=== PATIENT | female | born 1955 | race Caucasian/White ===

== ENCOUNTER 2017-12-26 11:30 | Outpatient (CLI) | payer BC | END 2017-12-26 11:31 | disposition home or self-care (01) | LOC: BICMAMMO 11:30 | PROVIDERS: ATTEND Obstetrics & Gynecology | DX: Z12.31 Encounter for screening mammogram for malignant neoplasm of breast (principal); N64.89 Other specified disorders of breast | CPT/HCPCS: 77063; 77067 ==

== ENCOUNTER 2017-12-29 12:54 | Outpatient (CLI) | payer BC | END 2017-12-29 12:55 | disposition home or self-care (01) | LOC: BICMAMMO 12:54 | PROVIDERS: ATTEND Obstetrics & Gynecology | DX: R92.2 Inconclusive mammogram (principal); N64.89 Other specified disorders of breast | CPT/HCPCS: G0279 ==

== ENCOUNTER 2019-01-01 09:38 | Outpatient (CLI) | payer BC ==
--- NOTE | 2019-01-01 10:59 | MMO ---
Bilateral MAMMO Bilat Screen [facility]. CLINICAL HISTORY: Patient is 63 years old and is seen for screening. The patient has no family history of breast cancer. The patient has no personal history of cancer. VIEWS: The views performed were: bilateral craniocaudal with tomosynthesis and bilateral mediolateral oblique with tomosynthesis. FILMS COMPARED: The present examination has been compared to prior imaging studies performed at [facility] on 12/23/2015, 12/23/2016, 12/26/2017 and 12/29/2017. MAMMOGRAM FINDINGS: The breasts are heterogeneously dense, which could obscure a lesion on mammography. There are no suspicious masses, suspicious calcifications, or new areas of architectural distortion. IMPRESSION: THERE IS NO MAMMOGRAPHIC EVIDENCE OF MALIGNANCY. A ROUTINE FOLLOW-UP MAMMOGRAM IN 1 YEAR IS RECOMMENDED. THE RESULTS OF THIS EXAM WERE SENT TO THE PATIENT. ACR BI-RADS Category 1 - Negative MAMMOGRAPHY NOTE: 1. A negative mammogram report should not delay a biopsy if a dominant of clinically suspicious mass is present. 2. Approximately 10% to 15% of breast cancers are not detected by mammography. 3. Adenosis and dense breasts may obscure an underlying neoplasm. Reported by: CHELSEA SAUCEDO MD Electonically Signed: [id number]
== END 2019-01-01 09:39 | disposition home or self-care (01) ==
LOC: BICMAMMO 09:38
PROVIDERS: ATTEND Internal Medicine
DX: Z12.31 Encounter for screening mammogram for malignant neoplasm of breast (principal)
CPT/HCPCS: 77063; 77067

== ENCOUNTER 2019-01-11 08:45 | Outpatient (CLI) | payer BC ==
--- NOTE | 2019-01-11 10:55 | BD ---
DEXA SCAN: INDICATION: Osteoporosis screening. COMPARISON: Prior examination dated 12/23/2016 from [facility]. FINDINGS: Lumbar Spine: BMD (g/cm2) L1 0.746 T-Score: -2.2 Z-Score: -0.8 L2 0.771 T-Score: -2.3 Z-Score: -0.8 L3 0.832 T-Score: -2.3 Z-Score: -0.7 L4 0.827 T-Score: -2.1 Z-Score: -0.5 L1-L4 0.797 T-Score: -2.3 Z-Score: 0.7 Femoral Neck: 0.681 T-Score: -1.5 Z-Score: -0.1 Total Femur: 0.881 T-Score: -0.5 Z-Score: 0.6 The FRAX WHO fracture risk assessment tool estimates fracture risk for a major osteoporotic fracture for this patient is 14% and for a hip fracture as 1.4%. The bone mineral density of the left femoral neck region and left total hip region has not appreciabl y changed from the comparison study. The bone mineral density of the lumbar spine has slightly decli milton from the previous evaluation in 2017. Impression: Based on WHO criteria, the patient's bone mineral density is osteopenic. The patient's bone mineral density has mildly declined from the comparison examination in 2017. POS: OFF
== END 2019-01-11 08:46 | disposition home or self-care (01) ==
LOC: BICMAMMO 08:45
PROVIDERS: ATTEND Obstetrics & Gynecology
DX: Z13.820 Encounter for screening for osteoporosis (principal); M85.89 Other specified disorders of bone density and structure, multiple sites
CPT/HCPCS: 77080

== ENCOUNTER 2020-05-07 13:36 | Outpatient (CLI) | payer BC, OTHER ==
--- NOTE | 2020-05-07 18:48 | MMO ---
Bilateral MAMMO Bilat Screen [facility]. CLINICAL HISTORY: Patient is 64 years old and is seen for screening. The patient has no family history of breast cancer. The patient has no personal history of cancer. VIEWS: The views performed were: bilateral craniocaudal with tomosynthesis and bilateral mediolateral oblique with tomosynthesis. FILMS COMPARED: The present examination has been compared to prior imaging studies performed at [facility] on 12/23/2016, 12/26/2017, 12/29/2017 and 01/01/2019. This study has been interpreted with the assistance of computer-aided detection. MAMMOGRAM FINDINGS: The breasts are heterogeneously dense, which could obscure a lesion on mammography. There are no suspicious masses, suspicious calcifications, or new areas of architectural distortion. IMPRESSION: THERE IS NO MAMMOGRAPHIC EVIDENCE OF MALIGNANCY. A ROUTINE FOLLOW-UP MAMMOGRAM IN 1 YEAR IS RECOMMENDED. THE RESULTS OF THIS EXAM WERE SENT TO THE PATIENT. ACR BI-RADS Category 1 - Negative MAMMOGRAPHY NOTE: 1. A negative mammogram report should not delay a biopsy if a dominant of clinically suspicious mass is present. 2. Approximately 10% to 15% of breast cancers are not detected by mammography. 3. Adenosis and dense breasts may obscure an underlying neoplasm. Reported by: KELLY MOCK MD Electonically Signed: [id number]
== END 2020-05-07 13:37 | disposition home or self-care (01) ==
LOC: BICMAMMO 13:36
PROVIDERS: ATTEND Physician Assistant
DX: Z12.31 Encounter for screening mammogram for malignant neoplasm of breast (principal)
CPT/HCPCS: 77063; 77067

== ENCOUNTER 2021-05-11 09:30 | Outpatient (CLI) | payer BC | END 2021-05-11 09:31 | disposition home or self-care (01) | LOC: BICMAMMO 09:30 | PROVIDERS: ATTEND Obstetrics & Gynecology | DX: Z12.31 Encounter for screening mammogram for malignant neoplasm of breast (principal) | CPT/HCPCS: 77063; 77067 ==

== ENCOUNTER 2022-07-01 12:14 | Outpatient (CLI) | payer MEDICARE, OTHER | END 2022-07-01 12:15 | disposition home or self-care (01) | LOC: BICMAMMO 12:14 | PROVIDERS: ATTEND Obstetrics & Gynecology | DX: Z12.31 Encounter for screening mammogram for malignant neoplasm of breast (principal) | CPT/HCPCS: 77063; 77067 ==

== ENCOUNTER 2022-07-08 11:04 | Outpatient (CLI) | payer MEDICARE, OTHER | END 2022-07-08 11:05 | disposition home or self-care (01) | LOC: BICMAMMO 11:04 | PROVIDERS: ATTEND Internal Medicine | DX: Z13.820 Encounter for screening for osteoporosis (principal); M85.852 Other specified disorders of bone density and structure, left thigh; M85.851 Other specified disorders of bone density and structure, right thigh; Z78.0 Asymptomatic menopausal state | CPT/HCPCS: 77080 ==

== ENCOUNTER 2023-07-01 11:10 | Outpatient (CLI) | payer MEDICARE, OTHER | END 2023-07-01 11:11 | disposition home or self-care (01) | LOC: BICRAD 11:10 | PROVIDERS: ATTEND Internal Medicine | DX: M41.9 Scoliosis, unspecified (principal); M54.50 Low back pain, unspecified; M47.816 Spondylosis without myelopathy or radiculopathy, lumbar region; M43.16 Spondylolisthesis, lumbar region | CPT/HCPCS: 72070; 72100 ==

== ENCOUNTER 2023-07-04 13:05 | Outpatient (CLI) | payer MEDICARE, OTHER | END 2023-07-04 13:06 | disposition home or self-care (01) | LOC: BICMAMMO 13:05 | PROVIDERS: ATTEND Internal Medicine | DX: Z12.31 Encounter for screening mammogram for malignant neoplasm of breast (principal) | CPT/HCPCS: 77063; 77067 ==

== ENCOUNTER 2023-10-29 12:02 | Outpatient (CLI) | payer MEDICARE, OTHER | END 2023-10-29 12:03 | disposition home or self-care (01) | LOC: SCSMRI 12:02 | PROVIDERS: ATTEND Nurse Practitioner Family | DX: M51.14 Intervertebral disc disorders with radiculopathy, thoracic region (principal) | CPT/HCPCS: 72146 ==

== ENCOUNTER 2023-11-18 08:58 | Outpatient (CLI) | payer MEDICARE, OTHER | END 2023-11-18 08:59 | disposition home or self-care (01) | LOC: SCSMRI 08:58 | PROVIDERS: ATTEND Nurse Practitioner Family | DX: M47.26 Other spondylosis with radiculopathy, lumbar region (principal); M47.815 Spondylosis without myelopathy or radiculopathy, thoracolumbar region; M47.817 Spondylosis without myelopathy or radiculopathy, lumbosacral region | CPT/HCPCS: 72148 ==